=== PATIENT | female | born 1960 | race Caucasian/White ===

== ENCOUNTER 2016-04-13 08:12 | Outpatient (CLI) | payer OTHER | END 2016-04-13 08:13 | disposition home or self-care (01) | DX: Z53.9 Procedure and treatment not carried out, unspecified reason (principal) ==

== ENCOUNTER 2016-04-14 19:49 | Emergency (ER) | payer OTHER ==
[2016-04-14] MEDS ORDERED: ONDANSETRON 4 MG/2 ML VIAL IVP STA (20:16)
[2016-04-14] MEDS ORDERED: SODIUM CHLORIDE 0.9% 1,000 ML IV STA (20:16)
[2016-04-14] MEDS ORDERED: ONDANSETRON 4 MG/2 ML VIAL ONE (20:35)
[2016-04-14] MEDS ORDERED: ONDANSETRON ODT 4 MG Prepack 2 TL STA (22:06)
[2016-04-14] MEDS ORDERED: ONDANSETRON ODT 4 MG Prepack 2 TL ONE (22:08)
== END 2016-04-14 22:14 | disposition home or self-care (01) ==
DX: R11.2 Nausea with vomiting, unspecified (principal); R19.7 Diarrhea, unspecified; F17.200 Nicotine dependence, unspecified, uncomplicated

== ENCOUNTER 2016-05-17 08:17 | Outpatient (CLI) | payer OTHER | END 2016-05-17 08:18 | disposition home or self-care (01) | DX: Z12.31 Encounter for screening mammogram for malignant neoplasm of breast (principal); Z80.3 Family history of malignant neoplasm of breast ==

== ENCOUNTER 2016-09-16 12:43 | Emergency (ER) | payer OTHER ==
[2016-09-16 13:34] LABS: BASOPHILS % (AUTO) 0.3 %; HCT - HEMATOCRIT 44.9 % (37.0-47.0); HGB - HEMOGLOBIN 15.7 g/dL (12.0-16.0); LYMPHOCYTES # (AUTO) 1.4 10^3/uL (1.5-3.5); LYMPHOCYTES % (AUTO) 12.4 %; MEAN CORPUSCULAR HEMOGLOBIN 32.2 pg (27.0-31.0); MEAN CORPUSCULAR HGB CONC 34.9 g/dL (32.0-36.0); MEAN CORPUSCULAR VOLUME 92.3 fL (81.0-99.0); MONOCYTES # (AUTO) 0.4 10^3/uL (0.0-1.0); MONOCYTES % (AUTO) 3.8 %; NEUTROPHILS # (AUTO) 9.2 10^3/uL (1.5-6.6); NEUTROPHILS % (AUTO) 83.5 %; RED BLOOD COUNT 4.87 10^6/uL (4.20-5.40); RED CELL DISTRIBUTION WIDTH 14.3 % (12.0-15.0)
[2016-09-16 13:39] LABS: INR 1.1 (0.8-1.2); PT - PROTHROMBIN TIME 11.9 secs (9.9-12.6)
[2016-09-16 13:44] LABS: ALBUMIN/GLOBULIN RATIO 1.3 (1.0-2.2); BILIRUBIN,TOTAL 0.9 mg/dL (0.2-1.0); CALCIUM 9.9 mg/dL (8.5-10.3); CREATININE 0.6 mg/dL (0.4-1.0); POTASSIUM 3.7 mmol/L (3.5-5.0); TOTAL PROTEIN 8.5 g/dL (6.7-8.2)
[2016-09-16 13:46] LABS: PARTIAL THROMBOPLASTIN TIME 25.4 secs (24.9-33.3)
--- NOTE | 2016-09-16 13:59 | ED Physician Documentation ---
PD HPI GI BLEED - Stated complaint Stated Complaint: VOMITING BLOOD - Chief complaint Chief Complaint: Abd Pain - History obtained from History obtained from: Patient, Family - History of Present Illness Timing - onset: Today Timing - duration: Hours (8) Timing - details: Abrupt onset Pain level max: 0 Pain level now: 0 Associated symptoms: Vomiting, Diarrhea. No: BRBPR, Maroon stool Contributing factors: Alcohol use. No: Anticoagulated, Diabetes Improved by: Vomiting Worsened by: Eating Similar symptoms before: Has not had sx before Recently seen: Not recently seen - Additional information Additional information: drinking etoh all day yestday (4-5 glasses of wine). Smoked marijuana and a pack of cigarettes as well. Today felt nauseated and vomited at 0100. At 10am noted specks of blood in her emesis. diarrhea x2 as well. Denies fever. Denies abd pain. Doesn't use NSAIDs. Takes flexeril and an unknown SSRI. 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 - Present Medications Home Medications: Ambulatory Orders Medication Instructions Recorded Confirmed Ipratropium/Albuterol [Combivent 2 puffs IH Q8HR PRN 02/27/15 09/16/16 Respimat] Beclomethasone 80 Mcg [Qvar 80] 2 puffs IH BID #1 inhaler 03/11/16 09/16/16 Omeprazole [PriLOSEC] 40 mg PO DAILY 04/14/16 09/16/16 Cyclobenzaprine [Flexeril] 20 mg PO DAILY 09/16/16 09/16/16 Ondansetron Odt [Zofran] 4 mg TL Q6H PRN #10 tablet 09/16/16 - Allergies Allergies/Adverse Reactions: Allergies Allergy/AdvReac Type Severity Reaction Status Date / Time No Known Drug Allergies Allergy Verified 09/16/16 12:53 - Social History Does the pt smoke?: Yes Smoking Status: Current every day smoker Does the pt drink ETOH?: Yes ETOH Use: Wine Does the pt have substance abuse?: No - Immunizations Immunizations are current?: Yes - POLST Patient has POLST: No PD ED PE NORMAL - Vitals Vital signs reviewed: Yes - General General: Alert and oriented X 3, No acute distress, Well developed/nourished - HEENT HEENT: PERRL, Moist mucous membranes, Pharynx benign - Neck Neck: Supple, no meningeal sign - Cardiac Cardiac: RRR - Respiratory Respiratory: No respiratory distress, Clear bilaterally - Abdomen Abdomen: Soft, Non tender, Non distended - Back Back: No CVA TTP - Derm Derm: Warm and dry, No rash - Extremities Extremities: No edema - Neuro Neuro: Alert and oriented X 3 - Psych Psych: Normal mood, Normal affect Results - Vitals Vitals: Vital Signs - 24 hr 09/16/16 09/16/16 09/16/16 12:50 12:57 15:09 Temperature 36.6 C Heart Rate 102 H 101 H 104 H Respiratory 22 17 Rate Blood Pressure 164/103 H 171/97 H O2 Saturation 98 96 Oxygen O2 Source Room air - Labs Labs: Laboratory Tests 09/16/16 09/16/16 09/16/16 13:02 13:10 13:10 WBC 11.0 H RBC 4.87 Hgb 15.7 Hct 44.9 MCV 92.3 MCH 32.2 H MCHC 34.9 RDW 14.3 Plt Count 299 MPV 8.0 Neut # 9.2 H Lymph # 1.4 L [place] # 0.4 Eos # 0.0 Baso # 0.0 Absolute Nucleated RBC 0.00 Nucleated RBCs 0.0 PT 11.9 INR 1.1 APTT 25.4 Sodium Potassium Chloride Carbon Dioxide Anion Gap BUN Creatinine Estimated GFR (MDRD) Glucose Calcium Total Bilirubin AST ALT Alkaline Phosphatase Total Protein Albumin Globulin Albumin/Globulin Ratio Lipase Ethyl Alcohol Blood Type A POSITIVE Antibody Screen NEGATIVE 09/16/16 09/16/16 13:10 14:17 WBC RBC Hgb Hct MCV MCH MCHC RDW Plt Count MPV Neut # Lymph # [place] # Eos # Baso # Absolute Nucleated RBC Nucleated RBCs PT INR APTT Sodium 132 L Potassium 3.7 Chloride 91 L Carbon Dioxide 26 Anion Gap 15.0 H BUN 13 Creatinine 0.6 Estimated GFR (MDRD) 103 Glucose 140 H Calcium 9.9 Total Bilirubin 0.9 AST 38 ALT 23 Alkaline Phosphatase 102 Total Protein 8.5 H Albumin 4.8 Globulin 3.7 Albumin/Globulin Ratio 1.3 Lipase 60 H Ethyl Alcohol < 5.0 Blood Type Antibody Screen PD MEDICAL DECISION MAKING - ED course Complexity details: reviewed old records, reviewed results, re-evaluated patient , considered differential, d/w patient, d/w family ED course: Patient is a 56-year-old female who had vomiting this morning after drinking alcohol last night. After repeated retching, she noticed some blood in the vomit. She received IV fluids as well as Zofran here as well as Protonix IV. Vomiting resolved. Tolerating p.o. without difficulty. She is well-appearing, nontoxic. Afebrile. No history of liver disease or varices. Abdomen is soft, nontender nondistended on serial exam. Encouraged her to decrease her alcohol use and continues to take her omeprazole at home. Patient counseled regarding signs and symptoms for which I believe and urgent re-evaluation would be necessary. Patient with good understanding of and agreement to plan and is comfortable going home at this time This document was made in part using voice recognition software. While efforts are made to proofread this document, sound alike and grammatical errors may occur. Departure - Departure Disposition: 01 Home, Self Care Clinical Impression: Gastritis Qualifiers: Gastritis type: alcoholic Chronicity: acute Gastritis bleeding: with bleeding Qualified Code(s): K29.21 - Alcoholic gastritis with bleeding Vomiting Qualifiers: Vomiting type: unspecified Vomiting Intractability: non-intractable Nausea presence: with nausea Qualified Code(s): R11.2 - Nausea with vomiting, unspecified Condition: Good Instructions: ED Gastritis Follow-Up: Akilah Burr MD [Primary Care Provider] - Within 1 week Prescriptions: Ondansetron Odt [Zofran] 4 mg TL Q6H PRN #10 tablet PRN Reason: Nausea / Vomiting Comments: Return if you worsen. You need to continue your omeprazole at home. Do not drink alcohol Discharge Date/Time: 09/16/16 16:06
[2016-09-16] MEDS ORDERED: SODIUM CHLORIDE 0.9% 1,000 ML IV ONE (14:00)
[2016-09-16] MEDS ORDERED: ONDANSETRON 4 MG/2 ML VIAL IVP STA (14:00)
[2016-09-16] MEDS ORDERED: PANTOPRAZOLE 40 MG VIAL IVP STA (14:01)
[2016-09-16] MEDS ORDERED: ONDANSETRON 4 MG/2 ML VIAL ONE (14:06)
[2016-09-16] MEDS ORDERED: PANTOPRAZOLE 40 MG VIAL ONE (14:06)
[2016-09-16 15:10] VITALS: BP 171/97
== END 2016-09-16 16:06 | disposition home or self-care (01) ==
LOC: ED 12:43
DX: K29.21 Alcoholic gastritis with bleeding (principal); K92.0 Hematemesis; K21.9 Gastro-esophageal reflux disease without esophagitis; J45.909 Unspecified asthma, uncomplicated; F12.90 Cannabis use, unspecified, uncomplicated; F17.200 Nicotine dependence, unspecified, uncomplicated
CPT/HCPCS: 36415; 80053; 80320; 83690; 85025; 85610; 85730; 86850; 86900; 86901; 96374; 96375; 99283; 99284

== ENCOUNTER 2017-01-02 09:57 | Emergency (ER) | payer SELFPAY ==
[2017-01-02 10:06] VITALS: BP 150/102
[2017-01-02] MEDS ORDERED: IPRATROPIUM/ALBUTEROL 3 ML NEB INH STA (10:11)
[2017-01-02] MEDS ORDERED: IPRATROPIUM/ALBUTEROL 3 ML NEB INH ONE (10:24)
[2017-01-02] MEDS ORDERED: DEXAMETHASONE 10 MG/ML VIAL PO STA (10:46)
--- NOTE | 2017-01-02 11:07 | ED Physician Documentation ---
PD HPI URI - Stated complaint Stated Complaint: SOA - Chief complaint Chief Complaint: Resp - History obtained from History obtained from: Patient - History of Present Illness Timing - onset: Yesterday Timing duration: Days (2) Timing details: Gradual onset, Still present Associated symptoms: Nasal congestion, Rhinorrhea, Dry cough, Dyspnea Contributing factors: Sick contact Improves by: Rest, Medication, MDI/nebulizer Worsened by: Activity, Breathing Similar symptoms before: Diagnosis (asthma) Recently seen: Not recently seen - Additional information Additional information: 56-year-old female with a history of reactive airway disease has developed increased dyspnea over the past day and she required the use of her nebulizer 4 times during the night. She has had this happen to her previously a number of times and has had to be on prednisone. The last time she had been on prednisone was over one year ago. She has had a cough nonproductive of sputum. Review of Systems Constitutional: reports: Myalgias, Fatigue. 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 - Present Medications Home Medications: Ambulatory Orders Medication Instructions Recorded Confirmed Albuterol 2.5 mg INH Q4H PRN 01/02/17 01/02/17 Albuterol Sulf [Ventolin Hfa 1 - 2 puffs INH Q4HR PRN #1 inhaler 01/02/17 Inhaler] Azithromycin [Zithromax] 250 mg PO DAILY #6 tablet 01/02/17 predniSONE [Deltasone] 10 mg PO DAILY #26 tablet 01/02/17 - Allergies Allergies/Adverse Reactions: Allergies Allergy/AdvReac Type Severity Reaction Status Date / Time No Known Drug Allergies Allergy Verified 01/02/17 10:16 - Social History Does the pt smoke?: Yes Smoking Status: Current every day smoker Does the pt drink ETOH?: Yes Does the pt have substance abuse?: Yes Substance Use and Type: Marijuana - Immunizations Immunizations are current?: No Immunizations: TDAP >10years/unknown - POLST Patient has POLST: No PD ED PE NORMAL - Vitals Vital signs reviewed: Yes (Tachycardic tachypneic and hypertensive.) - General General: Alert and oriented X 3, Well developed/nourished, Other (Mild tachypnea at rest) - HEENT HEENT: Atraumatic, PERRL, EOMI, Other (Both TMs are erythematous with rounding of the umbo the mucous membranes are dry.) - Neck Neck: Supple, no meningeal sign, No bony TTP - Cardiac Cardiac: RRR, No murmur - Respiratory Respiratory: Other (Tachypnea at rest with markedly diminished breath sounds and fine wheezes throughout) - Abdomen Abdomen: Soft, Non tender - Back Back: No CVA TTP, No spinal TTP - Derm Derm: Normal color, Warm and dry, No rash - Extremities Extremities: No deformity, No edema - Neuro Neuro: No motor deficit, No sensory deficit - Psych Psych: Normal mood, Normal affect Results - Vitals Vitals: Vital Signs - 24 hr 01/02/17 01/02/17 10:04 10:23 Temperature 36.2 C L Heart Rate 118 H 104 H Respiratory 26 H 16 Rate Blood Pressure 150/102 H O2 Saturation 93 Oxygen O2 Source Room air - Rads (name of study) 2 view chest Radiology: Prelim report reviewed (Impression: 1. A 7 mm asymmetric lateral left upper lobe opacity has developed since 03/23/2013 chest x-ray. Question lung nodule versus small region of airspace disease. 2. Faint, patchy right middle lobe opacity, compatible with atelectasis and/or airspace disease.), EMP read indepedently, See rad report PD MEDICAL DECISION MAKING - ED course Complexity details: reviewed old records, reviewed results, re-evaluated patient , considered differential, d/w patient ED course: 56-year-old female with history of reactive airway disease has acute symptoms and a cough with a postnasal drip and evidence of otitis on examination. She is administered dexamethasone 10 mg orally in the emergency department we will put her on a course of prednisone and Zithromax. Departure - Departure Disposition: 01 Home, Self Care Clinical Impression: Moderate COPD (chronic obstructive pulmonary disease) Otitis media Qualifiers: Otitis media type: suppurative Chronicity: acute Laterality: bilateral Recurrence: not specified as recurrent Spontaneous tympanic membrane rupture: without spontaneous rupture Qualified Code(s): H66.003 - Acute suppurative otitis media without spontaneous rupture of ear drum, bilateral Condition: Stable Instructions: ED Reactive Airway Disease, ED Otitis Media Acute Adult Follow-Up: Akilah Burr MD [Primary Care Provider] - Prescriptions: Albuterol Sulf [Ventolin Hfa Inhaler] 1 - 2 puffs INH Q4HR PRN #1 inhaler PRN Reason: Shortness Of Air/Wheezing Azithromycin [Zithromax] 250 mg PO DAILY #6 tablet predniSONE [Deltasone] 10 mg PO DAILY #26 tablet Comments: Today in the Emergency Department your blood pressure was elevated. This can happen from the stress of the visit itself, from a current illness or circumstance or from uncontrolled hypertension. If you take blood pressure medications take your usual mediations, have your blood pressure re-checked in an appropriate setting and follow up any elevation with your primary care doctor.
[2017-01-02] MEDS ORDERED: CHERRY SYRUP 10 ML UDC PO ONE (11:11)
[2017-01-02] MEDS ORDERED: DEXAMETHASONE 10 MG/ML VIAL ONE (11:11)
--- NOTE | 2017-01-02 11:12 | XRAY Preliminary Report ---
Exam: XR Chest 2 View PA/LAT IMPRESSION: 1. A 7 mm asymmetric lateral left upper lobe opacity has developed since 03/23/2013 chest x-ray. Ques tion lung nodule versus small region of airspace disease. 2. Faint, patchy right middle lobe opacity compatible with atelectasis and/or airspace disease. [facility] SITE ID: [id number]
--- NOTE | 2017-01-02 11:15 | XRAY Report ---
EXAM: CHEST RADIOGRAPHY EXAM DATE: 01/02/2017 10:56 AM. CLINICAL HISTORY: Cough and shortness of breath. COMPARISON: 03/23/2013. TECHNIQUE: 2 views. FINDINGS: Lungs/Pleura: New 7 mm asymmetric lateral left upper lobe opacity. Faint, patchy right middle lobe opacity. No pneumothorax or pleural effusion. Mediastinum: Heart and mediastinal contours are unremarkable. Other: None. IMPRESSION: 1. A 7 mm asymmetric lateral left upper lobe opacity has developed since 03/23/2013 chest x-ray. Ques tion lung nodule versus small region of airspace disease. 2. Faint, patchy right middle lobe opacity compatible with atelectasis and/or airspace disease. [facility] Referring Provider Line: [phone] SITE ID: [id number]
== END 2017-01-02 11:22 | disposition home or self-care (01) ==
LOC: ED 09:57
DX: J44.9 Chronic obstructive pulmonary disease, unspecified (principal); H66.003 Acute suppurative otitis media without spontaneous rupture of ear drum, bilateral; R03.0 Elevated blood-pressure reading, without diagnosis of hypertension; F17.200 Nicotine dependence, unspecified, uncomplicated
CPT/HCPCS: 71020; 94664; 99283; A9270; J7620

== ENCOUNTER 2017-01-18 11:10 | Emergency (ER) | payer SELFPAY ==
--- NOTE | 2017-01-18 12:01 | ED Physician Documentation ---
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 She was able to call 911 and when medics arrived they found her pulseless apneic and unresponsive. She arrives to the emergency department now with CPR ongoing for nearly 1 hour with fixed and dilated pupils and a rhythm without pulse or pressure. The medics were able to get a pressure at one time after giving the patient 2 mg of epinephrine. 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 - Present Medications Home Medications: Ambulatory Orders Medication Instructions Recorded Confirmed Albuterol 2.5 mg INH Q4H PRN 01/02/17 01/02/17 Albuterol Sulf [Ventolin Hfa 1 - 2 puffs INH Q4HR PRN #1 inhaler 01/02/17 Inhaler] Azithromycin [Zithromax] 250 mg PO DAILY #6 tablet 01/02/17 predniSONE [Deltasone] 10 mg PO DAILY #26 tablet 01/02/17 - Allergies Allergies/Adverse Reactions: Allergies Allergy/AdvReac Type Severity Reaction Status Date / Time No Known Drug Allergies Allergy Verified 01/02/17 10:16 - Social History Does the pt smoke?: Yes Smoking Status: Current every day smoker Does the pt drink ETOH?: Yes Does the pt have substance abuse?: Yes - Immunizations Immunizations are current?: No Immunizations: TDAP >10years/unknown - POLST Patient has POLST: No PD ED PE NORMAL - HEENT HEENT: Atraumatic, Other (pupils fixed and dilated) - Cardiac Cardiac: Other - Respiratory Respiratory: Clear bilaterally - Derm Derm: Normal color - Extremities Extremities: No deformity, No edema, Other (I/O in the lft tibia) Results - Vitals Vitals: Oxygen O2 Source Room air Procedures - Bedside sono Bedside sono by EMP: With use of bedside ultrasound the heart is imaged there is no cardiac motion there is electrical waveform on the monitor. PD MEDICAL DECISION MAKING - ED course Complexity details: reviewed old records, considered differential, d/w family ED course: 56-year-old female with a history of COPD and recent URI developed some shortness of breath today collapsed at home and CPR has been unsuccessful at resuscitating the patient. When she arrived to the emergency department CPR had been ongoing for about 1 hour and the patient's pupils are fixed and dilated she did appear to have a good airway with symmetric air movement and no cardiac movement with electrical activity on the monitor. Shortly after arrival to the emergency department resuscitation efforts were discontinued. Departure - Departure Disposition: 20
== END 2017-01-18 16:30 | disposition expired ==
LOC: EDBD → EDUNIT# → ED 11:10
DX: I46.9 Cardiac arrest, cause unspecified (principal); J44.9 Chronic obstructive pulmonary disease, unspecified; F17.200 Nicotine dependence, unspecified, uncomplicated
CPT/HCPCS: 92950; 99283; 99284